=== PATIENT | male | born 1990 | race Caucasian/White ===

== ENCOUNTER 2017-06-12 10:19 | Emergency (ER) | payer OTHER ==
[2017-06-12 11:35] VITALS: BP 131/76
--- NOTE | 2017-06-12 11:38 | UC ---
Throat Pain/Nasal Papito HPI - HPI Summary HPI Summary: 26 y/o presents with a sore throat for the last 2 days. He tells me that 2 days ago he had an abrupt onset of throat pain that was followed soon after by swelling of his tonsils. The pain and swelling have gotten progressively worse. Currently, he is only able to tolerate small bites of food - due to the swelling. He has not taken anything for the pain. He also tells me that he has never been immunized as a child or as an adult. He has been feeling feverish with chills since yesterday. Denies SOB, chest pain, abdominal pain, n/v/d/c - History of Current Complaint Chief Complaint: UCGeneralIllness Stated Complaint: SWOLLEN TONSILS Time Seen by Provider: 06/12/17 11:38 Hx Obtained From: Patient Onset/Duration: Sudden Onset Severity: Moderate Pain Intensity: 4 Pain Scale Used: 0-10 Numeric Associated Signs & Symptoms: Positive: Dysphagia, Fever - Allergies/Home Medications Allergies/Adverse Reactions: Allergies Allergy/AdvReac Type Severity Reaction Status Date / Time No Known Allergies Allergy Verified 06/12/17 11:30 Home Medications: Home Medications NK [No Home Medications Reported] 06/12/17 [History Confirmed 06/12/17] PMH/Surg Hx/FS Hx/Imm Hx - Surgical History Surgical History: None - Social History Alcohol Use: Weekly Substance Use Type: None Smoking Status (MU): Never Smoked Tobacco Review of Systems Constitutional: Fever, Chills Skin: Negative Eyes: Negative ENT: Sore Throat Respiratory: Negative Cardiovascular: Negative Gastrointestinal: Negative All Other Systems Reviewed And Are Negative: Yes Physical Exam Triage Information Reviewed: Yes Appearance: Ill-Appearing Vital Signs: Initial Vital Signs Temp 101.6 F 06/12/17 11:31 Pulse 101 06/12/17 11:31 Resp 16 06/12/17 11:31 BP 131/76 06/12/17 11:31 Pulse Ox 98 06/12/17 11:31 Vital Signs Reviewed: Yes Eyes: Positive: Conjunctiva Clear. Negative: Conjunctiva Inflamed, Discharge ENT: Positive: Hearing grossly normal, Pharyngeal erythema, Tonsillar swelling - 4+ b/l, Tonsillar exudate - Yellow/White colored membranous-like exudate covering the left tonsil., Muffled voice - "Hot potato" voice. Negative: Uvula midline - Moderate deviation to the right Neck: Positive: Supple, Other: - TTP over right submandibular > left. Lyphadenopathy on the right Respiratory: Positive: Chest non-tender, Lungs clear, Normal breath sounds, No respiratory distress, No accessory muscle use Cardiovascular: Positive: No Murmur, Pulses Normal, Tachycardia Neurological: Positive: Alert Psychological: Positive: Age Appropriate Behavior Skin: Negative: rashes Throat Pain/Nasal Course/Dx - Course Course Of Treatment: I suspect he has a peritonsillar abscess -- he is unable to tolerate po antibiotic. I also have concern for diphtheria, given his lack of immunizations, and potential sepsis. For these reasons, I have advised the patient to seek further evaluation and treatment in the ED. He says he will go to [facility] by private vehicle. - Differential Dx/Diagnosis Differential Diagnosis/HQI/PQRI: Peritonsillar Abscess, Pharyngitis, Tonsillitis Provider Diagnoses: Peritonsillar abscess right Discharge - Discharge Plan Condition: Stable Disposition: OTHER Discharge Disposition Comment: to [facility] [place] Referrals: No Primary Care Phys,NOPCP [Primary Care Provider] - Additional Instructions: The provider that saw you today advised you to go to the Emergency Room to be evaluated for your potential tonsil abscess.
== END 2017-06-12 12:06 ==
LOC: UCEAST 10:19
DX: J36 Peritonsillar abscess (principal)
CPT/HCPCS: 87070; 87651; 99202; G0463

== ENCOUNTER 2017-06-12 12:26 | Emergency (ER) | payer OTHER ==
[2017-06-12 12:32] VITALS: BP 126/77
[2017-06-12] MEDS ORDERED: D5NS 0.9% 1000 ML BAG* 1,000 ML IV.FLUID IV ONE (13:23)
[2017-06-12] MEDS ORDERED: Clindamycin 600 MG IVPREMIX(* 600 MG/50 ML SDV IV ONE (13:24)
--- NOTE | 2017-06-12 13:32 | ED ---
Throat Pain/Nasal Congestion - HPI Summary HPI Summary: Patient presents to the ED from with a right sided peritonsillar abscess. Afebrile on arrival. Denies recent history with strep throat. Dysphagia and odynophagia. Denies other symptoms including chest pain, SOB or OLIVIER. Has never had peritonsillar abscess. Denies health concerns and takes no medications for any reason. - History of Current Complaint Chief Complaint: EDThroatPain Time Seen by Provider: 06/12/17 12:39 Hx Obtained From: Patient Onset/Duration: Sudden Onset Severity: Moderate Associated Signs And Symptoms: Positive: Dysphagia, FB Sensation. Negative: Drooling, Wheezing, Hoarseness, Sinus Discomfort, Nasal Discharge - Epiglottits Risk Factors Epiglottis Risk Factors: Negative - Allergies/Home Medications Allergies/Adverse Reactions: Allergies Allergy/AdvReac Type Severity Reaction Status Date / Time No Known Allergies Allergy Verified 06/12/17 11:30 PMH/Surg Hx/FS Hx/Imm Hx Previously Healthy: Yes Endocrine/Hematology History: Denies: Hx Diabetes, Hx Thyroid Disease Cardiovascular History: Denies: Hx Hypertension Respiratory History: Denies: Hx Asthma, Hx Chronic Obstructive Pulmonary Disease (COPD) GI History: Denies: Hx Ulcer - Immunization History Hx Pertussis Vaccination: No Immunizations Up to Date: Unable to Obtain/Confirm Infectious Disease History: No Infectious Disease History: Denies: Hx Clostridium Difficile, Hx Hepatitis, Hx Human Immunodeficiency Virus (HIV), Hx of Known/Suspected MRSA, Hx Shingles, Hx Tuberculosis, Hx Known/ Suspected VRE, Hx Known/Suspected VRSA, Traveled Outside the [place] in Last 30 Days - Social History Occupation: Employed Full-time Lives: With Family Alcohol Use: Weekly Hx Substance Use: No Substance Use Type: Reports: None Hx Tobacco Use: No Smoking Status (MU): Never Smoked Tobacco Review of Systems Constitutional: Negative Negative: Fever, Chills, Fatigue, Skin Diaphoresis Negative: Photophobia, Blurred Vision Positive: Sore Throat. Negative: Nasal Discharge Negative: Palpitations, Chest Pain Negative: Shortness Of Breath Musculoskeletal: Negative Skin: Negative Neurological: Negative All Other Systems Reviewed And Are Negative: Yes Physical Exam Triage Information Reviewed: Yes Vital Signs On Initial Exam: Initial Vitals Temp Pulse Resp BP Pulse Ox 101.6 F 100 20 126/77 97 06/12/17 12:30 06/12/17 12:30 06/12/17 12:30 06/12/17 12:30 06/12/17 12:30 Vital Signs Reviewed: Yes Appearance: Positive: Ill-Appearing Skin: Positive: Skin Color Reflects Adequate Perfusion Head/Face: Positive: Normal Head/Face Inspection Eyes: Positive: EOMI, KEYUR, Conjunctiva Clear ENT: Positive: Tonsillar swelling, Tonsillar exudate, Other - uvula pushed to the L - Right peritonsillar abscess with bulging and erythematous area - no drooling Neck: Positive: No Lymphadenopathy Respiratory/Lung Sounds: Positive: Clear to Auscultation, Breath Sounds Present Cardiovascular: Positive: Pulses are Symmetrical in both Upper and Lower Extremities Musculoskeletal: Positive: Strength/ROM Intact Neurological: Positive: Speech Normal AVPU Assessment: Alert Diagnostics - Vital Signs Vital Signs Temp Pulse Resp BP Pulse Ox 06/12/17 12:30 101.6 F 100 20 126/77 97 - Laboratory Lab Statement: Any lab studies that have been ordered have been reviewed, and results considered in the medical decision making process. EENT Course/Dx - Course Course Of Treatment: uvula pushed to the L - Right peritonsillar abscess with bulging and erythematous area - no drooling. called Dr. arzate for consult who states he is able to see him in the office today in 30 minutes. He is immediatley discharged and is to go directly to their office. - Diagnoses Provider Diagnoses: Peritonsillar abscess Discharge - Discharge Plan Condition: Stable Disposition: HOME Patient Education Materials: Peritonsillar Abscess (ED) Referrals: Lasha Garcia MD [Medical Doctor] - No Primary Care Phys,NOPCP [Primary Care Provider] - Additional Instructions: Please go directly to the ENT office
[2017-06-12] MEDS ORDERED: DEXAMETHASONE IVPB SCH (14:00)
[2017-06-12] MEDS ORDERED: NS 0.9% IVPB SCH (14:00)
== END 2017-06-12 13:36 | disposition home or self-care (01) ==
LOC: ED 12:26
DX: J36 Peritonsillar abscess (principal); R06.02 Shortness of breath
CPT/HCPCS: 99283